=== PATIENT | female | born 1925 | race Caucasian/White ===

== ENCOUNTER 2017-03-19 14:32 | Emergency (ER) | payer OTHER, MEDICARE ==
[~2017-03-19] VITALS: Ht 147.3 cm; Wt 49.0 kg
--- NOTE | ~2017-03-19 | EKG ---
[address] [address] ELECTROCARDIOGRAM REPORT Name: JENNYSHARONCHELSEA BARBOSA [id number] Admission: 03/19/17 Attend Phys: Discharge: 03/19/17 Date of : [birth year] Report #: [id number] THIS REPORT FOR: //name// [facility] ED Test Date: 2017-03-19 Test Time: 14:47:21 Pat Name: SHARON ALVARADO Department: Room: 170 Gender: F Fine Patcher: URIEL : 1925 Requested By: Annette St Order Number: [id number] MD: Malik Flor Measurements Intervals [place] Rate: 61 P: -9 IA: 181 QRS: -11 QRSD: 92 T: 42 QT: 453 QTc: 457 Interpretive Statements Sinus rhythm Anteroseptal infarct, age indeterminate Compared to ECG 10/15/2016 16:38:25 Myocardial infarct finding still present Electronically Signed On 03-24-2017 21:42:45 CDT by Malik Flor [email or web address] <ELECTRONICALLY SIGNED> By: Malik Flor MD 03/24/172141 1447 144 Malik Flor MD /JOHN
[~2017-03-19 14:32] MED LIST: AFEDITAB CR30 MG PO; AFEDITAB CR60 M1 PO; ALLOPURINOL 10100 M1 PO; ALLOPURINOL 10100 M2 PO; ASPIR 8181 M1 PO; ASPIR 8181 MG PO; ASPIRIN EC81 M1 PO; ASPIRIN325 PO; CELEXA 10 MG TA10 M1 PO; CELEXA10 MG PO; CENTRUM SILVER1 EAC4 PO; CIPRO500 MG PO; COLACE100 MG PO; COREG3.125 MG PO; COREG6.25 MG PO; DEMADEX20 MG PO; DILTIAZEM 24HR180 M2 PO; DUONEB 2.5-0.5 M3 ML INH; ENOXAPARIN30 MG/0.1 SUBQ; LEVAQUIN 500 M500 M2 PO; LOSARTAN POTAS100 MG PO; LOVASTAT40 PO; MORPHINE TOP; NIFEDIPINE XL30 MG PO; OCUVITE TABLET1 EAC1 PO; PEG3350510 GM PO; PREDNISONE 10 M10 MG PO; PREDNISONE 20 M20 MG PO; PREDNISONE10 MG PO; PRILOSEC 20 MG20 MG PO; REGLAN 5 MG TAB5 MG PO; RENAL CAPS SOFTG1 MG PO; TAMIFLU30 MG PO; TORSEMIDE PO; TYLENOL325 MG PO; VENTOLIN HFA 1818 GM INH; VIBRAMYCIN 100100 MG PO; VITAMINC500 PO
[2017-03-19 14:33] VITALS: BP 123/66
[2017-03-19] MEDS ORDERED: RENAGEL400 MG PO (14:42)
[2017-03-19] MEDS ORDERED: OCUVITE TABLET1 EAC1 PO (14:43)
[2017-03-19 15:08] LABS: HEMATOCRIT 33.2 % (37.0-47.0); HEMOGLOBIN 10.9 gm/dL (12.0-15.0); MCH 29.7 pg (26.0-34.0); MCHC 32.9 g/dL (28.0-37.0); MCV 90.4 fL (80.0-100.0); PLATELET COUNT 212 thou/uL (150-400); RBC 3.67 mil/uL (4.20-5.00); RDW 16.4 % (10.5-14.5); WBC 5.6 thou/uL (4.0-11.0)
[2017-03-19 15:09] LABS: MANUAL DIFF YES
[2017-03-19 15:16] LABS: ANION GAP 6 mmol/L (7-16); BUN 25 mg/dL (7-18); CALCIUM 9.2 mg/dL (8.5-10.1); CHLORIDE 99 mmol/L (98-107); CO2 33 mmol/L (21-32); CREATININE 5.1 mg/dL (0.6-1.0); GLUCOSE 119 mg/dL (74-106); POTASSIUM 4.7 mmol/L (3.5-5.1); SODIUM 138 mmol/L (136-145)
[2017-03-19 15:28] LABS: NT-PRO BRAIN NAT PEPTIDE 6525 pg/mL (<300); TROPONIN-I < 0.04 ng/mL (<0.04-0.07)
[2017-03-19 15:39] LABS: ABSOLUTE NEUTROPHILS 3.5 thou/uL (1.4-8.2); ANISOCYTOSIS 1+; TOTAL CELL COUNT 100
[2017-03-19 18:10] VITALS: BP 160/63
== END 2017-03-19 18:49 | disposition home or self-care (01) ==
LOC: ER 14:32 → EROBS 17:24
PROVIDERS: Emergency Medicine
DX: R09.02 Hypoxemia (principal); R06.00 Dyspnea, unspecified; M41.9 Scoliosis, unspecified; K21.9 Gastro-esophageal reflux disease without esophagitis; E78.5 Hyperlipidemia, unspecified; J44.9 Chronic obstructive pulmonary disease, unspecified; I13.2 Hypertensive heart and chronic kidney disease with heart failure and with stage 5 chronic kidney disease, or end stage renal disease; N18.6 End stage renal disease; I50.9 Heart failure, unspecified; Z86.718 Personal history of other venous thrombosis and embolism; Z86.2 Personal history of diseases of the blood and blood-forming organs and certain disorders involving the immune mechanism; Z99.2 Dependence on renal dialysis; Z88.1 Allergy status to other antibiotic agents; Z88.0 Allergy status to penicillin; Z87.891 Personal history of nicotine dependence

== ENCOUNTER 2017-04-06 13:17 | Inpatient (IN) | payer OTHER, MEDICARE ==
[~2017-04-06] VITALS: Ht 147.3 cm; Wt 51.9 kg
--- NOTE | ~2017-04-06 | EEG ---
[facility] [place] [address] ELECTROENCEPHALOGRAM Name: SHARON ALVARADO Room #: 420-P [facility] IN M.R.#: [id number] Admission: 04/08/17 Attend Phys: Ravi Oliva DO Discharge: Date of : [birth year] Report #: [id number] THIS REPORT FOR: //name// CC: Ravi Daniel DATE OF SERVICE: 04/08/2017 This patient is being evaluated for an episode of syncope. EEG was done by placing the electrodes by standard 10-20 system of electrode placement. Both referential and sequential montages were used for recording. Background activity in this patient's EEG is about 9 Hz and 30-40 microvolt. This patient became drowsy that is associated with bilateral slowing and a few vertex sharp waves. Photic stimulation is unremarkable. Throughout the record, no active epileptiform activity was noticed. IMPRESSION: This patient's EEG is unremarkable. Hear showed pauses and that was called to nurses by body shop technician Thank you very much for this referral. <ELECTRONICALLY SIGNED> By: Ravi Lucio MD 04/10/17 0738 0823 0831 Ravi Lucio MD /nt
--- NOTE | ~2017-04-06 | EKG ---
[place] [address] [facility] [place] [address] ELECTROCARDIOGRAM REPORT Name: SHARON ALVARADO Room [facility]: [facility] [id number] Admission: 04/06/17 Attend Phys: Discharge: Date of : [birth year] Report #: [id number] THIS REPORT FOR: //name// [facility] ED Test Date: 2017-04-06 Test Time: 13:19:20 Pat Name: SHARON ALVARADO Department: Room: Gender: F Mine Technician: : 1925 Requested By: Erasmo Zaragoza Order Number: [id number] MD: Malik Flor Measurements Intervals [place] Rate: 71 P: 0 LA: 261 QRS: 18 QRSD: 117 T: 56 QT: 428 QTc: 466 Interpretive Statements Sinus rhythm with Mobitz I Nonspecific intraventricular conduction delay Anteroseptal infarct, age indeterminate Compared to ECG 03/19/2017 14:47:21 Electronically Signed On 04-06-2017 14:59:51 CDT by Malik Flor [email or web address] <ELECTRONICALLY SIGNED> By: Malik Flor MD 04/06/17 1459 1319 Malik Flor MD /JOHN
--- NOTE | ~2017-04-06 | P ---
[facility] [place] [address] PROCEDURE REPORT Name: SHARON ALVARADO Room #: 207-P ADM IN M.R.#: [id number] Admission: 04/08/17 Attend Phys: Ravi Oliva DO Discharge: Date of : [birth year] Report #: [id number] THIS REPORT FOR: //name// CC: Ravi Daniel PROCEDURE PERFORMED: Pacemaker implantation. PREOPERATIVE DIAGNOSES: 1. Bradycardia. 2. Sick sinus syndrome. 3. Heart block. POSTOPERATIVE DIAGNOSES: 1. Sick sinus syndrome. 2. Heart block. HISTORY: The patient is an 89-year-old female with a known history of coronary artery disease, who has had recurrent syncopal episodes. On cardiac telemetry, she has been bradycardiac into the 30s and 40s. Some of these episodes appear to be PACs with compensatory pauses as well as heart block. She is here for dual chamber pacemaker insertion. Given her history of a meningioma that is monitored by Neurology, she will need an MRI compatible device. ANESTHESIA: The patient underwent MAC anesthesia with no anesthesia-related complications. DESCRIPTION OF PROCEDURE: The patient underwent informed consent. We discussed the details of the procedure including the risks, which included but not limited to bleeding, infection, vascular damage, cardiac perforation, pneumothorax. She understood these risks and was willing to proceed. She was brought to the EP laboratory in a fasting and sedated state and received IV vancomycin for antibiotic prophylaxis. Due to her prior dialysis catheter placed in the right subclavian position, venogram was performed. Next, I injected 20 mL of lidocaine below the level of the right clavicle. An incision was made and a pocket was created over the prepectoral fascia. Next, I attempted to obtain access. I attempted several times to access the vein unsuccessfully. Therefore, another venogram was performed. I was eventually able to obtain access to the vein times 1. I then continued to try to obtain a second access, but I kept hitting the artery. She had unusual anatomy based on her venography. Eventually, I decided to place a sheath over the guidewire that was in the vein and then double wired the sheath to obtain access twice. Next, I positioned a lead into the right ventricular apex. This had adequate pacing and sensing thresholds. Next, I attempted to place the atrial lead into the right atrium. Of note, her atrium was highly diseased. There were very, very small P waves. Capturing the atrium was difficult to discern for two reasons. [facility] [address] [place] [address] PROCEDURE REPORT Name: SHARON ALVARADO Room #: 207-P [facility] IN M.R.#: [id number] Admission: 04/08/17 Attend Phys: Ravi Oliva DO Discharge: Date of : [birth year] Report #: [id number] First reason being that the patient was in heart block and second reason, it was difficult to determine atrial capture based on the diminutive atrial surface P-waves. Eventually, we were able to prove that the lead was capturing successfully. The sheaths were split and then the leads were sutured to the prepectoral fascia. I performed a pursestring suture around the origins of the lead insertion as there was some bleeding at the vessel. Next, the device was connected to the leads and was functioning normally. The device was placed in the pocket and the pocket was irrigated with vancomycin and then the pocket was closed in 3 layers and surgical glue was placed to the outer skin layer. A pressure dressing was placed to the skin layer. The patient awoke neurologically and hemodynamically intact with no complications and no significant bleeding. The implanted pacemaker was a [employer] model #YC5054, MRI compatible ____ device, serial #[id number]. The atrial lead was a [employer] model #KHI8740M, serial #[id number]. This lead demonstrated a P-wave of 1 millivolt, pacing impedance of 430 ohms and the pacing threshold of 1.25 volts at 1 millisecond. The RV lead was a [employer] model #EUX4473L, serial #[id number]. The R-wave was 9.6 millivolts, pacing impedance of 630 ohms and pacing threshold 0.4 volts at 0.5 milliseconds. The device was programmed to the DDD 60-120 mode. CONCLUSIONS: 1. Successful dual-chamber pacemaker implantation. 2. Satisfactory atrial and ventricular pacing and sensing thresholds. <ELECTRONICALLY SIGNED> By: Malik Flor MD 04/11/17 1105 1045 1155 Malik Flor MD /nt
--- NOTE | ~2017-04-06 | HC ---
[facility] [place] [address] CONSULTATION Name: SHARON ALVARADO Room #: 420-P ADM IN M.R.#: [id number] Admission: 04/08/17 Attend Phys: Ravi Oliva DO Discharge: Date of : [birth year] Report #: [id number] THIS REPORT FOR: //name// CC: Ravi Daniel REASON FOR CONSULTATION: End-stage renal disease. HISTORY OF PRESENT ILLNESS: This is an 89-year-old with past medical history of end-stage renal disease. She is maintained on dialysis every Saturday, Saturday and Saturday. She had a blackout or a syncopal episode while trying to get to her apartment door yesterday. She does not recall the events. She does not recall if she had a head trauma or not. She is known to have peripheral arterial disease with some stents of the iliacs. She follows with Dr. Preciado from the Cardiology Service. She does not recall coronary artery disease. She does not recall atrial fibrillation events. She has a normal left ventricular systolic function. She had an unusual event few months ago that was thought to be due to methemoglobinemia related to lidocaine usage. She dialyzed on Saturday. She recalls that they pulled about 1.5 liters. She felt weak and dizzy on the day of the dialysis while trying to get her lunch and had to be supported by one of the staff in her apartment complex. The syncopal event happened at the door of her apartment with no preceding events. She was brought by one of her friends to the Emergency Room after they called the master deputy sheriff court security and the nursing staff in her apartment complex. There is nothing to suggest a cardiac event; however, symptoms were nonspecific and we could not really rule out any arrhythmic events. There is nothing to suggest a stroke event. Initial evaluation revealed a meningioma growing in size. It does look like that it is producing some mass effect. The patient tells me that she was in the [facility] Center back on for fistulogram of her access and she felt some numbness in the left hand while on dialysis after that. PAST MEDICAL HISTORY: 1. End-stage renal disease. 2. Hypertension. 3. Hyperlipidemia. 4. Rotator cuff surgery. 5. Coronary artery disease. 6. Peripheral arterial disease. 7. Nephrolithiasis. 8. Cholecystectomy. SOCIAL HISTORY: She lives in an assisted living environment. Nonsmoker, nondrinker. FAMILY HISTORY: Significant for hypertension. REVIEW OF SYSTEMS: [facility] [address] [place] [address] CONSULTATION Name: SHARON ALVARADO Room #: 420-P [facility] IN [facility].#: [id number] Admission: 04/08/17 Attend Phys: Ravi Oliva DO Discharge: Date of : [birth year] Report #: [id number] GENERAL: No fever or chills, but significant weakness. CARDIOVASCULAR: Significant for shortness of breath and dyspnea on exertion. PULMONARY: Shortness of breath. GASTROINTESTINAL: No nausea or vomiting. NEUROLOGY: As per the history of present illness. MEDICATIONS: 1. Aspirin. 2. Sevelamer. 3. Albuterol. PHYSICAL EXAMINATION: GENERAL: The patient is alert, oriented, in no apparent distress. VITAL SIGNS: Blood pressure was 141/63 and it dropped down to 120/40. She is afebrile. CHEST: No crackles. CARDIOVASCULAR: No rub. ABDOMEN: Soft, nontender. LOWER EXTREMITIES: No edema. UPPER EXTREMITIES: Left AV graft. LABORATORY VALUES: Reviewed. Creatinine 5.3 and BUN 24. CBC with a hemoglobin of 10.2. IMAGES: Carotid Doppler showed mild bilateral plaquing. CT showed a mass along the inferior left cerebellopontine angle, causing some mass effect on the medulla. ASSESSMENT, IMPRESSION AND PLAN: 1. Syncope. 2. End-stage renal disease. 3. Meningoma. 4. Hypertension. 5. Diabetes mellitus. 6. Recent AV access intervention. 7. Postural hypotension. 8. Dialysis will be arranged as usual every Saturday, Saturday and Saturday. Gentle ultrafiltration with tomorrow dialysis. 9. Cardiac workup has been initiated.Questions regarindg Low pulse and possible Pacemaker for symptomatic braducardia will be answered by cardiology , defer to them 10. Neurological workup. [facility] [address] [place] [address] CONSULTATION Name: SHARON ALVARADO FAMILIA Room #: 420-P [facility] IN M.R.#: [id number] Admission: 04/08/17 Attend Phys: Ravi Oliva DO Discharge: Date of : [birth year] Report #: [id number] 11. We will review her outpatient access center procedure to decide about possible steal syndrome after an AV fistulogram. <ELECTRONICALLY SIGNED> By: Margaret Carranza MD 04/09/1721 1 0836 Margaret Carranza MD /nt
--- NOTE | ~2017-04-06 | HC ---
[facility] [place] [address] CONSULTATION Name: SHARON ALVARADO Room #: 207-P ADM IN M.R.#: [id number] Admission: 04/08/17 Attend Phys: Ravi Oliva DO Discharge: Date of : [birth year] Report #: [id number] THIS REPORT FOR: //name// CC: Ravi Daniel DATE OF SERVICE: 04/11/2017 HISTORY OF PRESENT ILLNESS: The patient is an 89-year-old white female with episode of syncope x2. CT of the head was negative. She has a small meningioma that was unchanged. Cardiac workup, however, revealed sick sinus syndrome and heart block. She underwent a permanent pacemaker on 04/10/2017. We are seeing her in rehabilitation medicine consultation. PAST MEDICAL HISTORY: Includes end-stage renal disease, on hemodialysis. She has a history of bilateral rotator cuff repairs, bilateral carpal tunnel surgery, scoliosis, CHF, GERD, dyslipidemia, 5-grfq-fik-day smoker for 40 years - quit in 1996, iron deficiency anemia, COPD, and peripheral arterial disease. MEDICATIONS: Please see the full medication listing. HABITS: See above regarding tobacco. No history of alcohol abuse. ALLERGIES: AMPICILLIN/PENICILLIN. REVIEW OF SYSTEMS: Did not offer any current complaints of chest pain, shortness of breath, abdominal discomfort. She notes she has the rotator cuff problems with both shoulders and is only able to keep objects on the lower shelf in her kitchen. She did not offer any other focal extremity pain complaints. SOCIAL HISTORY: She lives in an independent living apartment at [facility]. She lives alone. She does have a walker and a cane. There are no steps. She catches a local volunteer ride service for her dialysis. She notes that her son will be able to stay with her through the weekend or a sister post-discharge through this weekend. PHYSICAL EXAMINATION: GENERAL: An 89-year-old white female in no obvious distress. She appears to be alert, oriented, appropriate and a good historian. VITAL SIGNS: Last recorded temperature 97.5, pulse 73, respirations 24, blood pressure is 145/56. She is alert, oriented. HEENT: Appeared to be benign. NEUROLOGIC: Cranial nerves grossly intact. Left upper extremity definite decreased abduction of that shoulder, can really only range it to about 30-40 degrees abduction. She has reasonable elbow flexion, wrist flexion, hand strength at least a grade 4-. Right upper extremity, she has the surgical scar [facility] [address] [facility] [place] [address] CONSULTATION Name: SHARON ALVARADO Room #: 207-P ADM IN M.R.#: [id number] Admission: 04/08/17 Attend Phys: Ravi Oliva DO Discharge: Date of : [birth year] Report #: [id number] over the pacemaker. I did not range that shoulder at all. She does have some movement of that elbow, wrist and hand, probably at grade 4-. Lower extremities, no focal calf swelling. Strength appears to be probably a grade 4-. DTRs are trace to 1. ASSESSMENT: An 89-year-old white female with the following problem list: 1. Syncopal episode x 2. 2. Heart block status post permanent pacemaker 04/10/2017. 3. End-stage renal disease, on hemodialysis. 4. History of bilateral rotator cuff tears. 5. Previous chronic tobacco abuse. 6. Hypertension. 7. Chronic obstructive pulmonary disease. 8. Peripheral arterial disease. 9. Scoliosis. PLAN: Occupational therapy orders are added. Physical therapy involvement is pending. The patient desires to do a [facility] stay next to [place] where she lives. [facility] This would likely be reasonable. At this point, we will continue to follow, but will have the casework specialist further involved as well. Thank you for asking us to assist in this patient's care. By: 1037 0059 Jd Stapleton MD /
--- NOTE | ~2017-04-06 | HC ---
[facility] [place] [address] CONSULTATION Name: SHARON ALVARADO Room #: 207-P ADM IN M.R.#: [id number] Admission: 04/08/17 Attend Phys: Ravi Oliva DO Discharge: Date of : [birth year] Report #: [id number] THIS REPORT FOR: //name// CC: Ravi Daniel REASON FOR CONSULTATION: Recurrent syncope. HISTORY OF PRESENT ILLNESS: The patient is an 89-year-old female with history of coronary artery disease, status post drug-eluting stent as well as peripheral vascular disease with an echo in October 2014 showing EF of 70%, who presents with recurrent syncopal episodes. She reports on Saturday, she was in the bathroom and she felt like her leg out and she felt down. She denies actually passing out at this time. On , the patient was at her dining [place] and apparently she was about to pass out and someone had to grab her put her down into a chair before she passed out. Other people noted that she looked to be dizzy. Yesterday, the patient was not feeling very well. She went to go open her door and then without warning she passed out. She came to the Emergency Room where she was evaluated. Her initial EKG showed sinus rhythm with Mobitz I as well as evidence of PACs with long compensatory sinus pauses with sinus rates in the 30s to 40s. On telemetry, she has had essentially the same thing. She has had periods of times heart rates down in the 30s-40s, often associated with PACs that result in compensatory sinus bradycardia. She denies any chest pain. She reports chronic shortness of breath. She denies PND or orthopnea. She denies any other symptoms. REVIEW OF SYSTEMS: Twelve-point review of systems was negative other than what I mentioned above. PAST MEDICAL HISTORY: CAD, peripheral vascular disease, COPD, end-stage renal disease, meningioma. SOCIAL HISTORY: Does not smoke. FAMILY HISTORY: Noncontributory. ALLERGIES: PENICILLIN. MEDICATIONS: No AV tamara blocking agents. PHYSICAL EXAMINATION: VITAL SIGNS: Temperature is 36.3, pulse range is from 40s-70s, respiration 16, blood pressure 110/56, sats 97%. GENERAL: She is in no acute distress. HEENT: Oropharynx is clear. NECK: Supple, no thyromegaly. HEART: Regular rate and rhythm with occasional ectopic beats. [facility] [address] [place] [address] CONSULTATION Name: SHARON ALVARADOStacia Room #: 207-P [facility] IN .R.#: [id number] Admission: 04/08/17 Attend Phys: Ravi Oliva DO Discharge: Date of : [birth year] Report #: [id number] LUNGS: Clear bilaterally. ABDOMEN: Soft, nontender, nondistended with no hepatosplenomegaly. EXTREMITIES: There is no clubbing, cyanosis, edema. NEUROLOGIC: Cranial nerves 2-12 are grossly intact. LABORATORY DATA: White count 5.2, hemoglobin 10.2, platelets 172. Coags: INR 1.0. Chemistry: Potassium 4.3. BUN 24, creatinine 5.3. Troponin negative x 1. TSH normal. Chest x-ray, no acute process. 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 This appears to be similar in size compared to what was noted on 07/09/2016. Carotids showed no significant stenosis. ASSESSMENT AND PLAN: In summary, the patient is an 89-year-old with recurrent syncopal episodes and evidence of sick sinus syndrome on her EKG and telemetry. She is not on any medications that could explain this. I have recommended that she undergo an echocardiogram. I recommend that we keep her n.p.o. after midnight and proceed with pacemaker implantation via right-sided access. We will need to perform a venogram prior to the procedure given her prior central line placements at the right subclavian vessel. I have discussed the details of the procedure including the risks, which include but not limited to bleeding, infection, vascular damage, cardiac perforation, pneumothorax. She understands these risks and is willing to proceed. Given that she has this meningioma, I will require recurrent MRIs, I recommended an MRI compatible pacemaker. <ELECTRONICALLY SIGNED> By: Malik Flor MD 04/11/17 1105 1116 1439 Malik Flor MD /nt
--- NOTE | ~2017-04-06 | 2DMMODE ---
[facility] [address] [place] [address] 2 D/M-MODE ECHOCARDIOGRAM Name: SHARON ALVARADO Room #: 420-P [facility] IN M.R.#: [id number] Admission: 04/06/17 Attend Phys: Ravi Oliva, Discharge: Date of : [birth year] Date of Service: 04/08/17 0948 Report #: [id number] THIS REPORT FOR: //name// APPROVED REPORT Study performed: 04/08/2017 08:39:01 EXAM: Comprehensive 2D, Doppler, and color-flow Echocardiogram Patient Location: Bedside Room #: 420 Status: routine BSA: 1.41 BP: 127/50 mmHg Other Information Study Quality: Adequate Indications Congestive Heart Failure COPD Murmur Hypertension/HDD 2D Dimensions RVDd: 26.89 mm LVEF(%): 66.86 (>50%) IVSd: 12.04 (7-11mm) LVOT Diam: 18.70 (18-24mm) LVDd: 39.00 mm PWd: 11.07 (7-11mm) Ascending Ao: 33.42 (22-36mm) LVDs: 24.78 (25-40mm) Aortic Root: 29.49 mm IVC: 19.00 mm Holloway's LVEF: 66.86 % Volumes Left Atrial Volume (Systole) Single Plane 4CH: 34.19 mL Single Plane 2CH: 44.30 mL LA ESV Index: 29.00 mL/m2 Aortic Valve AoV Peak Yanick.: 1.65 m/s AO Peak Gr.: 10.93 mmHg LVOT Max P.51 mmHg LVOT Max V: 1.06 m/s CHUCK Vmax: 1.76 cm2 Mitral Valve [facility] [address] [address] 2 D/M-MODE ECHOCARDIOGRAM Name: SHARON ALVARADOStacia Room #: 420-[facility] IN ..#: [id number] Admission: 04/06/17 Attend Phys: Ravi Oliva, Discharge: Date of : [birth year] Date of Service: 04/08/17 0948 Report #: [id number] E/A Ratio: 0.8 MV Decel. Time: 315.80 ms MV E Max Yanick.: 0.98 m/s MV A Yanick.: 1.20 m/s MV PHT: 91.58 ms IVRT: 179.93 ms Pulmonary Valve PV Peak Yanick.: 0.96 m/s PV Peak Gr.: 3.71 mmHg Pulmonary Vein P Vein S: 0.79 m/s P Vein A: 0.24 m/s P Vein D: 0.66 m/s P Vein A Dur.: 79.6 msec P Vein S/D Ratio: 1.20 Tricuspid Valve RAP Estimate: 5.00 mmHg Left Ventricle The left ventricle is normal size. There is normal LV segmental wall motion. There is normal left ventricular wall thickness. The left ventricular systolic function is normal. The left ventricular ejection fraction is within the normal range. LVEF is 55-60%. Transmitral Doppler flow pattern suggests impaired LV relaxation. Right Ventricle The right ventricle is normal size. The right ventricular systolic function is normal. Atria Left atrium is dilated. Right atrium is borderline dilated. Aortic Valve The Aortic valve is sclerotic. No aortic regurgitation is present. There is no aortic valvular stenosis. Mitral Valve Mild mitral annular calcification. Mild mitral regurgitation. No evidence of mitral valve stenosis. Tricuspid Valve The tricuspid valve is normal in structure. Trace to mild tricuspid regurgitation. Unable to assess PA [place] [address] 2 D/M-MODE ECHOCARDIOGRAM Name: JENNYSHARON FAMILIA Room #: 420-P [facility] IN M.R.#: [id number] Admission: 04/06/17 Attend Phys: Ravi Oliva, Discharge: Date of : [birth year] Date of Service: 04/08/17 0948 Report #: [id number] Pulmonic valve is not well visualized. Trace pulmonic regurgitation. Great Vessels The aortic root is normal in size. IVC is normal in size and collapses >50% with inspiration. Pericardium There is no pericardial effusion. <Conclusion> The left ventricular systolic function is normal. There is normal LV segmental wall motion. LVEF is 55-60%. The Aortic valve is sclerotic. No aortic valvular stenosis or insufficiency. Mild mitral annular calcification. Mild mitral regurgitation. Pulmonary artery pressure could not be reliably ascertained There is no pericardial effusion. <ELECTRONICALLY SIGNED> By: Kojo Preciado MD, FACC 04/08/1748 7 7 Kojo Preciado MD, FACC /INF
--- NOTE | ~2017-04-06 | EKG ---
[place] [address] [facility] [place] [address] ELECTROCARDIOGRAM REPORT Name: SHARON ALVARADO Room #: 207-P ADM IN M.R.#: [id number] Admission: 04/08/17 Attend Phys: Ravi Oliva DO Discharge: Date of : [birth year] Report #: [id number] THIS REPORT FOR: //name// [facility] Test Date: 2017-04-11 Test Time: 15:31:27 Pat Name: SHARON ALVARADO Department: Room: 207 P Gender: F Division Chair: Jillian MARCH : 1925 Requested By: Gabriela Orozco Order Number: [id number] MD: Kojo Preciado Measurements Intervals [place] Rate: 74 P: [place]: QRS: 7 QRSD: 251 T: -38 QT: 422 QTc: 469 Interpretive Statements Sinus rhythm with and atrial and V-paced complexes No further rhythm analysis attempted due to paced rhythm LVH with secondary repolarization abnormality Compared to ECG 04/06/2017 13:19:20 Intermittent pacing is now present Electronically Signed On 04-12-2017 8:40:30 CDT by Kojo Preciado [email or web address] <ELECTRONICALLY SIGNED> By: Kojo Preciado MD, [facility] 04/12/17 0840 1531 1531 Kojo Preciado MD, [facility] /EPI
[~2017-04-06 13:17] MED LIST changes: +RENAGEL400 MG PO
[2017-04-06 13:18] VITALS: BP 116/60
[2017-04-06 13:52] LABS: HEMATOCRIT 33.2 % (37.0-47.0); HEMOGLOBIN 10.9 gm/dL (12.0-15.0); MCH 29.6 pg (26.0-34.0); MCHC 32.9 g/dL (28.0-37.0); MCV 89.9 fL (80.0-100.0); RBC 3.69 mil/uL (4.20-5.00); RDW 17.1 % (10.5-14.5); WBC 5.8 thou/uL (4.0-11.0)
[2017-04-06 13:54] LABS: ANION GAP 7 mmol/L (7-16); BUN 18 mg/dL (7-18); CALCIUM 9.5 mg/dL (8.5-10.1); CHLORIDE 98 mmol/L (98-107); CO2 32 mmol/L (21-32); CREATININE 4.2 mg/dL (0.6-1.0); GLUCOSE 140 mg/dL (74-106); POTASSIUM 4.6 mmol/L (3.5-5.1); SODIUM 137 mmol/L (136-145)
[2017-04-06 14:03] LABS: TROPONIN-I < 0.04 ng/mL (<0.04-0.07)
[2017-04-06 14:06] LABS: APTT 28.8 Seconds (24.5-32.8); PROTIME 10.2 Seconds (9.3-11.4)
[2017-04-06 14:52] VITALS: BP 116/60
[2017-04-06 15:30] VITALS: BP 127/61
[2017-04-06 15:55] VITALS: BP 141/61
[2017-04-06 20:00] VITALS: BP 116/40
[2017-04-07 04:21] VITALS: BP 124/54
[2017-04-07 05:35] LABS: HEMATOCRIT 30.7 % (37.0-47.0); HEMOGLOBIN 10.2 gm/dL (12.0-15.0); MCH 29.8 pg (26.0-34.0); MCHC 33.3 g/dL (28.0-37.0); MCV 89.7 fL (80.0-100.0); PLATELET COUNT 172 thou/uL (150-400); RBC 3.43 mil/uL (4.20-5.00); RDW 17.6 % (10.5-14.5); WBC 5.2 thou/uL (4.0-11.0)
[2017-04-07 05:36] LABS: MANUAL DIFF YES
[2017-04-07 05:48] LABS: CALCIUM 9.1 mg/dL (8.5-10.1); CREATININE 5.3 mg/dL (0.6-1.0); POTASSIUM 4.3 mmol/L (3.5-5.1)
[2017-04-07 07:40] LABS: FOLIC ACID 38.9 ng/mL (8.6-58.9)
[2017-04-07 07:54] VITALS: BP 141/63
[2017-04-07 08:00] VITALS: BP 130/53
[2017-04-07 08:01] VITALS: BP 110/56
[2017-04-07 09:00] LABS: ABSOLUTE NEUTROPHILS 2.9 thou/uL (1.4-8.2); ANISOCYTOSIS 1+; TOTAL CELL COUNT 100
[2017-04-07 15:10] LABS: FREE T4 0.94 ng/dL (0.82-1.77)
[2017-04-07 16:25] VITALS: BP 107/45
[2017-04-07 20:00] VITALS: BP 106/43
[2017-04-07 21:06] LABS: GLYCOHEMOGLOBIN (HGB A1C) 5.6 % (4.8-5.6)
[2017-04-08 04:30] VITALS: BP 129/52
[2017-04-08 07:37] VITALS: BP 127/50
[2017-04-08 16:00] VITALS: BP 122/50
[2017-04-08 16:20] VITALS: BP 122/50
[2017-04-08 19:45] VITALS: BP 109/50
[2017-04-09 03:50] VITALS: BP 120/42
[2017-04-09 05:10] LABS: ALBUMIN 2.7 g/dL (3.4-5.0); CALCIUM 8.6 mg/dL (8.5-10.1); POTASSIUM 4.7 mmol/L (3.5-5.1)
[2017-04-09 05:11] LABS: CREATININE 3.8 mg/dL (0.6-1.0)
[2017-04-09 08:00] VITALS: BP 124/48
[2017-04-09 09:16] LABS: HEMATOCRIT 29.7 % (37.0-47.0); HEMOGLOBIN 9.6 gm/dL (12.0-15.0); MCH 29.4 pg (26.0-34.0); MCHC 32.3 g/dL (28.0-37.0); MCV 91.2 fL (80.0-100.0); PLATELET COUNT 155 thou/uL (150-400); RBC 3.26 mil/uL (4.20-5.00); RDW 17.3 % (10.5-14.5); WBC 5.5 thou/uL (4.0-11.0)
[2017-04-09 09:31] LABS: MANUAL DIFF YES
[2017-04-09 10:03] LABS: ABSOLUTE NEUTROPHILS 3.2 thou/uL (1.4-8.2); PLATELET ESTIMATE NORMAL; TOTAL CELL COUNT 100
[2017-04-09 12:07] LABS: ALPHA TOCOPHEROL 19.7 mg/L (6.5-21.5)
[2017-04-09 16:00] VITALS: BP 125/52
[2017-04-09 17:10] LABS: HEP B SURFACE Ab(ANTI-HBS Non Reactive (())
[2017-04-09 20:00] VITALS: BP 112/37
[2017-04-10 05:30] VITALS: BP 128/52
[2017-04-10 06:39] LABS: HEMATOCRIT 29.3 % (37.0-47.0); HEMOGLOBIN 9.7 gm/dL (12.0-15.0); MCH 29.9 pg (26.0-34.0); MCV 90.5 fL (80.0-100.0); PLATELET COUNT 153 thou/uL (150-400); RBC 3.23 mil/uL (4.20-5.00); RDW 17.6 % (10.5-14.5); WBC 4.7 thou/uL (4.0-11.0)
[2017-04-10 06:46] LABS: MANUAL DIFF YES
[2017-04-10 06:55] LABS: ALBUMIN 2.7 g/dL (3.4-5.0); CALCIUM 9.1 mg/dL (8.5-10.1); PHOSPHORUS 4.3 mg/dL (2.5-4.9); POTASSIUM 5.1 mmol/L (3.5-5.1)
[2017-04-10 08:37] LABS: ANISOCYTOSIS 1+; MYELOCYTES 1 %; TOTAL CELL COUNT 100
[2017-04-10 11:50] VITALS: BP 131/58
[2017-04-10 15:53] VITALS: BP 112/48
[2017-04-10 16:00] VITALS: BP 112/48
[2017-04-10 19:16] VITALS: BP 118/54
[2017-04-10 23:04] VITALS: BP 143/59
[2017-04-11 02:37] VITALS: BP 149/67
[2017-04-11 02:49] LABS: HEMATOCRIT 29.1 % (37.0-47.0); HEMOGLOBIN 9.4 gm/dL (12.0-15.0); MCH 29.5 pg (26.0-34.0); MCHC 32.5 g/dL (28.0-37.0); MCV 90.9 fL (80.0-100.0); RBC 3.2 mil/uL (4.20-5.00); RDW 17.3 % (10.5-14.5); WBC 5.1 thou/uL (4.0-11.0)
[2017-04-11 02:58] LABS: CALCIUM 8.8 mg/dL (8.5-10.1); CREATININE 6.8 mg/dL (0.6-1.0); POTASSIUM 5.4 mmol/L (3.5-5.1)
[2017-04-11 07:57] VITALS: BP 145/56
[2017-04-11 11:53] VITALS: BP 141/67
[2017-04-11 15:25] VITALS: BP 104/78
[2017-04-11 19:24] VITALS: BP 121/21
[2017-04-11 23:37] VITALS: BP 105/54
[2017-04-12 03:59] VITALS: BP 135/64
[2017-04-12 04:30] LABS: ALBUMIN 2.6 g/dL (3.4-5.0); CALCIUM 8.9 mg/dL (8.5-10.1); PHOSPHORUS 3.7 mg/dL (2.5-4.9); POTASSIUM 4.6 mmol/L (3.5-5.1)
[2017-04-12 04:33] LABS: CREATININE 3.8 mg/dL (0.6-1.0)
[2017-04-12 07:45] VITALS: BP 110/58
[2017-04-12] MEDS ORDERED: HYDROCODON-ACE1 EAC7 PO (10:25)
== END 2017-04-12 13:33 | DRG 242 ==
LOC: ER 13:17 → EROBS 15:06 → 4E 15:47 → 2N 04-10 15:02
PROVIDERS: Emergency Medicine; Family Medicine; Internal Medicine Cardiovascular Disease; Internal Medicine Nephrology; Psychiatry & Neurology Neurology
DX: I49.5 Sick sinus syndrome (principal); N18.6 End stage renal disease; I13.2 Hypertensive heart and chronic kidney disease with heart failure and with stage 5 chronic kidney disease, or end stage renal disease; I44.1 Atrioventricular block, second degree; I50.9 Heart failure, unspecified; I25.10 Atherosclerotic heart disease of native coronary artery without angina pectoris; M62.81 Muscle weakness (generalized); K21.9 Gastro-esophageal reflux disease without esophagitis; D32.9 Benign neoplasm of meninges, unspecified; E78.5 Hyperlipidemia, unspecified; J44.9 Chronic obstructive pulmonary disease, unspecified; E11.51 Type 2 diabetes mellitus with diabetic peripheral angiopathy without gangrene; E11.22 Type 2 diabetes mellitus with diabetic chronic kidney disease; I95.1 Orthostatic hypotension; Z95.820 Peripheral vascular angioplasty status with implants and grafts; Z79.82 Long term (current) use of aspirin; Z79.899 Other long term (current) drug therapy; Z86.718 Personal history of other venous thrombosis and embolism; Z87.891 Personal history of nicotine dependence; Z90.49 Acquired absence of other specified parts of digestive tract; Z87.442 Personal history of urinary calculi; Z88.0 Allergy status to penicillin; Z88.1 Allergy status to other antibiotic agents; Z82.49 Family history of ischemic heart disease and other diseases of the circulatory system
CPT/HCPCS: 10081; 10183; 32100; 62110; 62900; 70005